=== PATIENT | male | born 1980 | race Hispanic/Latino ===

== ENCOUNTER → 2024-04-13 | Outpatient (CLI) | payer BC, SELFPAY ==
[2024-04-13 15:47] LABS: ALB/GLOB Ratio 1.1 RATIO (0.9-2.4); AST(SGOT) 14 U/L (15-37); Alanine Aminotransfer ALT/SGPT 25 U/L (16-61); Albumin, Serum 3.8 g/dL (3.2-5.0); Alkaline Phosphatase 59 U/L (45-117); Anion Gap 6 (5-15); BUN 18 mg/dL (7-18); BUN/Creat Ratio 18.8 RATIO (10-20); CRP < 2.90 mg/L (0.0-3.0); Chloride 109 mmol/L (98-107); Cholesterol 157 mg/dL (200); Creatinine, Serum 0.96 mg/dL (0.70-1.30); EST Glomerular Filtration Rate 91 mL/min (>60); Est Glom Filt Rate - Afr Amer 110 mL/min (>60); Globulin 3.5 g/dL (2.2-4.2); Glucose 116 mg/dL (74-106); High Density Lipoprotein 29 mg/dL; Magnesium 2.3 mg/dL (1.6-2.6); Potassium 4.4 mmol/L (3.5-5.1); Protein, Total 7.3 g/dL (6.4-8.2); Sodium Level 139 mmol/L (136-145); Triglycerides 146 mg/dL; Very Low Density Lipoprotein 29 mg/dL (5-40)
[2024-04-13 16:25] LABS: Erythrocyte Sedimentation Rate 3 mm/hr (0-20)
[2024-04-13 16:26] LABS: Absolute Neutrophil Count 4.7 X10^3/uL (2.0-7.7); Basophil# 0.05 X10^3/uL; Basophil% 0.6 % (0-1); Eosinophil# 0.23 X10^3/uL; Eosinophils% 2.9 % (0-5); Hematocrit 45.3 % (40-54); Hemoglobin 15.2 g/dL (13.0-16.5); Lymphocyte % 29.4 % (19-41); Mean Corp Hgb Conc 33.6 g/dL (32-36); Mean Corpuscular Hgb 31.9 pg (27.0-32.0); Mean Corpuscular Volume 95.2 fL (80-94); Mean Platelet Vol. 9.7 fl (6.2-12.0); Monocyte# 0.49 X10^3/uL; Monocyte% 6.3 % (0-10); NRBC Flagged by Analyzer 0 % (0-5); Neutrophil # 4.71 X10^3/uL (2.7-7.7); Neutrophil % 60.4 % (47-70); Platelet Count 281 K/mm3 (150-450); RBC Distribution Width SD 45.5 fl (35.1-43.9); Red Blood Count 4.76 M/mm3 (4.6-6.2); White Blood Count 7.8 K/mm3 (4.4-11.0)
[2024-04-13 16:40] LABS: Vitamin B12 432 pg/mL (211-911); Vitamin D,25 Hydroxy 25.2 ng/mL
[2024-04-15 12:08] LABS: ANTINUCLEAR ANTIBODIES DIRECT Negative (Negative)
[2024-04-15 17:07] LABS: CCP IgG Antibodies 3 units (0-19)
== END | disposition home or self-care (01) ==
LOC: BIMLAB 12:03
PROVIDERS: Visit Provider Physician Assistant
DX: Z00.00 Encounter for general adult medical examination without abnormal findings (principal); M25.50 Pain in unspecified joint; R63.4 Abnormal weight loss
CPT/HCPCS: 36415; 80053; 80061; 82306; 82607; 83735; 84443; 85025; 85652; 86038; 86140; 86200

== ENCOUNTER → 2024-06-22 | Outpatient (CLI) | payer BC, SELFPAY ==
[2024-06-22 14:37] LABS: CRP < 3.00 mg/L (0.0-3.0); Rheumatoid Factor < 10.0 IU/mL (<15)
== END | disposition home or self-care (01) ==
LOC: BIMLAB 10:24
PROVIDERS: PCP Internal Medicine; Referring Provider Internal Medicine; Visit Provider Internal Medicine
DX: M25.50 Pain in unspecified joint (principal)
CPT/HCPCS: 36415; 86140; 86431

== ENCOUNTER 2024-08-17 10:19 | Day surgery (SDC) | payer BC, SELFPAY ==
[2024-08-17] VITALS (8 sets, daily range): BP systolic 87–97; BP diastolic 56–64; PULSE 58–69; RESP 16–18; TEMP 36.6–37.1; O2SAT 93–99; BMI 28.5
[2024-08-17] MEDS: Lactated Ringers 1,000 ML 15 ML IV (10:48)
--- NOTE | 2024-08-17 10:57 | PRE.ANES_ITS ---
ASA Classification* ASA Classification ASA Classification: 2 (daily THC use) Assessment & Plan Anesthesia* Anesthesia Assessment Anesthesia Assessment: Discussed sedation and/or anesthesia options, risks, benefits, and alternatives with patient/parents/legal guardian/POA. Questions invited. The patient/parents/legal guardian/POA seems to understand and agrees to proceed with anesthesia plan. Reviewed the physical assessment, medical history, allergy history and patient home medications list prior to surgery/procedure/anesthetic and documented any changes. Performed airway and anesthesia risk assessments. Anesthesia Type Anesthesia Type: General History Source History Obtained from:: Patient and Chart Anesthesia Focused Assessment* Temperature: 97.9 F Pulse Rate: 69 Blood Pressure: 95/64 Respiratory Rate: 18 Pulse Ox: 99 Oxygen Delivery Method: Room Air Airway Assessment Mouth opens: >3 cm Mallampati Score: II Teeth Condition: Intact and Missing (many missing bottom left ) Neck Range of motion (ROM): Full ROM Focused Labs Anesthesia Preop lab: CBC WBC 7.8 K/mm3 (4.4-11.0) 04/13/24 12:03 04/13/24 RBC 4.76 M/mm3 (4.6-6.2) 04/13/24 12:03 04/13/24 Hgb 15.2 g/dL (13.0-16.5) 04/13/24 12:03 04/13/24 Hct 45.3 % (40-54) 04/13/24 12:03 04/13/24 Plt Count 281 K/mm3 (150-450) 04/13/24 12:03 04/13/24 CHEMISTRY Potassium 4.4 mmol/L (3.5-5.1) 04/13/24 12:03 04/13/24 Sodium 139 mmol/L (136-145) 04/13/24 12:03 04/13/24 Magnesium 2.3 mg/dL (1.6-2.6) 04/13/24 12:03 04/13/24 BUN 18 mg/dL (7-18) 04/13/24 12:03 04/13/24 Creatinine 0.96 mg/dL (0.70-1.30) 04/13/24 12:03 04/13/24 Glucose 116 mg/dL (74-106) H 04/13/24 12:03 04/13/24 TSH 1.200 uIU/mL (0.358-3.740) 04/13/24 12:03 03/17 12/08 COAG Pre-Assessment Diagnosis/Proposed Procedure Planned Operative Procedure(s): Colonoscopy,EGD Anesthesia History Anesthesia History - 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 When Was Last Pacemaker Check QUESTION #4 FULL TEXT: You/Your Family Experience fever (hyperthermia) with Anesthesia Last Oral Intake Last Oral intake: Last Oral Intake NPO since 07:15 08/17/24 10:43 Meds taken in AM with sips of No 08/17/24 10:43 water? Meds patient instructed to take am of surgery PONV PONV - senior mainframe developer: PONV - senior mainframe developer Female No 08/12/24 12:29 HX of Motion Sickness No 08/12/24 12:29 HX of N/V After Surgery No 08/12/24 12:29 Non-Smoker No 08/12/24 12:29 Duration of Surgery greater No 08/12/24 12:29 than 60 minutes Number of Risk Factors PONV Score Height & Weight Height & Weight: Anesthesia: Height & Weight Height 6 ft 2.02 in 08/17/24 10:43 Weight: 101 kg 08/17/24 10:43 Body Mass Index (BMI) 28.5 08/17/24 10:43 Respiratory Assessment Respiratory Assessment - senior mainframe developer: Respiratory Tract Infection Hx - senior mainframe developer Hx Respiratory Tract Infection No 08/12/24 12:29 STOP Sleep Apnea STOP Sleep Apnea - senior mainframe developer: STOP Sleep Apnea - senior mainframe developer Hx Hypertension No 08/12/24 12:29 Hx Sleep Apnea No 08/12/24 12:29 CPAP BIPAP Do you snore loudly (louder No 08/12/24 12:29 than talking or can be heard Do you often feel tired/ No 08/12/24 12:29 fatigued/ sleepy during daytime? Has anyone observed you stop No 08/12/24 12:29 breathing during sleep? STOP Results Negative 08/12/24 12:29 QUESTION #5 FULL TEXT : Do you snore loudly (louder than talking or can be heard through closed doors)? 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 Specify any problems Hx of Preganancy in last 3 N/A 08/12/24 12:29 Months Nurse Filling Out Transfusion JZOLLINGE 08/12/24 12:29 & Questions: Date: 08/12/24 08/12/24 12:29 Time: 12:30 08/12/24 12:29 Patient unable to answer at this time (ie. confused, unrespo /Reproduction History /Reproductive History - senior mainframe developer: /Reproductive Hx- senior mainframe developer Hx Now No 08/12/24 12:29 Gestational Age (in weeks): EDC: Hx Hx Para Hx Section SAB No 08/12/24 12:29 Active Medications Active Medications: Current Medications Generic Name Dose Route Start Last Admin Trade Name Freq PRN Reason Stop Dose Admin Lactated Ringer's 1,000 mls @ 15 mls/hr 08/17/24 10:30 08/17/24 10:48 IV 15 mls/hr .Q48H VIKASH Administration PFSH Medical History (Updated 08/12/24 @ 12:29 by Kate Medina) Alcohol use Marijuana use Arthritis Smoker Borderline type 2 diabetes mellitus Colon cancer screening Diverticulitis Back problem Home Medications ?Medication ?Instructions ?Recorded ?Last Taken ?Type meloxicam 15 mg tablet 15 mg PO QDAY PRN pain #90 t abs 06/22/24 Unknown Rx ocsgzyxoargw-sbtzihk-ebldr acid 1 tab PO QDAY 06/22/24 Unknown History 400 mcg-lutein 250 mcg chewable tablet (Centrum Silver) naproxen 500 mg tablet 500 mg PO BID PRN PRN pain 0 08/12/24 Unknown History Allergy/AdvReac Type Severity Reaction Status Date / Time No Known Allergies Allergy Verified 08/17/24 10:42 Family History Grandmother Cancer breast Mother Diabetes Hypertension Kidney disease Aunt Lung cancer Surgical History History of appendectomy Social History adopted: No household members: spouse housing: house number of children: 2 current occupational status: employed 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 Physical Exam Const alert, oriented x3 and average body habitus Resp normal respiratory effort, normal air movement and clear to auscultation bilate rally Cardio regular rate, regular rhythm, no murmurs and diaphoretic
--- NOTE | 2024-08-17 11:15 | EGD_PTH ---
PATIENT: MAURO MANRIQUEZ LOC: EN U#:[id number] AGE/SX: 44/M ROOM: RE08/17/[address]: Dr. Arnulfo Markham DO : 1980 BED: DIS: 08/17/2024 SPEC #: [id number] RECD: 08/17/24 12:45 STATUS: MERLINE REQ #: [id number] SANJANA: 08/17/24 11:[address]: Arnulfo Markham DEPT: SURGICAL PATHOLOGY RECD BY: Etienne Christie ENTERED: 08/17/24 13:16 SP TYPE: EGD BIOPSY OT DR: Dr. Julisa Littlejohn MD Tissues: A - Duodenum, NOS B - Gastric mucous membrane C - Ileum, NOS D - COLON BIOPSY E - COLON BIOPSY Procedures: Immunohistochemical Stains Surgery Specimen Level IV HEADER OPERATION: Colonoscopy with biopsy, EGD with biopsy PRE-OP DIAGNOSIS: Weight loss, colon cancer screening TISSUE SUBMITTED: A- Duodenum biopsy, B- Gastric ulcer biopsy, C- Terminal ileum biopsy, D- Right side colon biopsy, E- Left side colon biopsy MICROSCOPIC DIAGNOSIS A. Small intestine, duodenum, biopsies: * Slight villous irregularity with Chasity's gland hyperplasia and without active inflammation B. Stomach, gastric ulcer: * Oxyntic mucosa with areas of superficial erosion with an overlying fibrinopurulent exudate, consistent superficial ulceration * An immunohistochemical stain for Helicobacter pylori is negative C. Small intestine, terminal ileum: * Benign without active inflammation or architectural distortion D. Large intestine, right side: * Benign colonic mucosa without active inflammation E. Large intestine, left side: * Benign colonic mucosa without active inflammation MICROSCOPIC DESCRIPTION Slides are reviewed. All matched controls reacted appropriately. These tests were developed and their performance characteristics determined by [facility]. They may not have been cleared or approved by the U.S. Food and Drug Administration. The FDA has determined that such clearance or approval is not necessary. The above immunohistochemical/dualISH markers are ordered and reviewed by the Pathologist. GROSS DESCRIPTION A. Received in formalin in a container labeled with the patient's name, date of , and duodenum biopsy are multiple farfan-pink fragments of mucosal tissue measuring 0.8 x 0.6 x 0.3 cm in aggregate. Submitted in toto in A1. B. Received in formalin in a container labeled with the patient's name, date of , and gastric ulcer biopsy for H. pylori and path are multiple farfan-pink to farfan-arellano fragments of mucosal tissue measuring 0.7 x 0.6 x 0.2 cm in aggregate. Submitted in toto in B1. C. Received in formalin in a container labeled with the patient's name, date of , and terminal ileum biopsy are multiple farfan-pink fragments of mucosal tissue measuring 1.2 x 0.6 x 0.2 cm in aggregate. Submitted in toto in C1. D. Received in formalin in a container labeled with the patient's name, date of , and right side colon biopsy are multiple farfan-pink fragments of mucosal tissue measuring 1.0 x 0.5 x 0.2 cm in aggregate. Submitted in toto in D1. E. Received in formalin in a container labeled with the patient's name, date of , and left side colon biopsy are multiple farfan-pink fragments of mucosal tissue measuring 0.8 x 0.6 x 0.2 cm in aggregate. Submitted in toto in E1. [facility] 08-17-2024 CPT:58149u4,55077
--- NOTE | 2024-08-17 11:43 | PCM.HP.STD ---
HPI - General General Date of Admission: 08/17/24 Date of Service: 08/17/24 Chief Complaint: Weight loss and screening colonoscopy HPI Narrative FIDEL SUAREZ, is a 44 M who presents for an upper lower endoscopy. Pt here today for screening colonoscopy as he is due for his first one. He endorses some mild constipation over the past year with straining. he is also having unintentional weight loss over the past year with about a 50 lbs weight loss. He has a lack of appetite which causes him to eat less. He endorses smoking marijuana for his insomnia and appetite stimulation. He has some blood with wiping after bowel movements. It is bright red and streaks the toilet paper. He Tyson abd pain, diarrhea, melena, n/v, or heartburn. he denies family hx of colon cancer. [facility] Medical History Alcohol use Marijuana use Arthritis Smoker Borderline type 2 diabetes mellitus Colon cancer screening Diverticulitis Back problem Home Medications ?Medication ?Instructions ?Recorded ?Last Taken ?Type meloxicam 15 mg tablet 15 mg PO QDAY PRN pain #90 tabs 06/22/24 Unknown Rx pezzxxufqzox-clfzdfs-fjbwz acid 1 tab PO QDAY 06/22/24 Unknown History 400 mcg-lutein 250 mcg chewable tablet (Centrum Silver) naproxen 500 mg tablet 500 mg PO BID PRN PRN pain 08/12/24 Unknown History Allergy/AdvReac Type Severity Reaction Status Date / Time No Known Allergies Allergy Verified 08/17/24 10:42 Family History Grandmother Cancer breast Mother Diabetes Hypertension Kidney disease Aunt Lung cancer Surgical History History of appendectomy Social History adopted: No household members: spouse housing: house number of children: 2 current occupational status: employed 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 pets and animals: Yes (1) pets and animals: dog(s) sexually active: Yes Smoking Status: Light Smoker (<10/day) Tobacco: How many years used: 25 alcohol intake: current alcohol intake frequency: holidays/special occasions only substance use type: marijuana and other details: [facility] caffeine: Yes (4-6) Type: coffee what type of physical activity do you participate in: none frequency: does not exercise seatbelt use: always do you feel safe at home: Yes ROS Constitutional Constitutional: Denies fatigue, fever(s), poor appetite, weight gain or weight loss Gastrointestinal Gastrointestinal: Denies belching, bloating, change in bowel habits, change in stool character, chewing difficulty, coffee ground emesis, constipation, cramping, diarrhea, dyspepsia, dysphagia, early satiety, excessive flatus, fecal incontinence, heartburn, hematemesis, hematochezia, hemorrhoids, loose stools, melena, nausea, odynophagia, rectal bleeding, tenesmus, vomiting or weight changes Vital Signs Vital Signs Vital Signs: 08/17/24 10:43 08/17/24 10:43 08/17/24 10:59 Temperature 97.9 F 97.9 F Temperature Source Temporal Pulse Rate 69 69 Respiratory Rate 18 18 Respiratory Pattern Normal Blood Pressure 95/64 95/64 Blood Pressure Mean 74 Blood Pressure Source Monitor Blood Pressure Position Sitting Blood Pressure Location Right Arm Pulse Ox 99 99 Oxygen Delivery Method Room Air Room Air Weight Weight: 222 lb 10.67 oz Body Mass Index (BMI) 28.5 Physical Exam Const alert, oriented x3, no apparent distress and healthy appearing General Appearance: cooperative GI normal to inspection, nondistended, normoactive bowel sounds, soft to palpation, non-tender and non-distended Percussion: normal to percussion Rectal Exam: deferred Assessment & Plan Assessment/Plan (1) Weight loss: (2) Colon cancer screening: PLAN: Assessment and Plan Assessment and Plan (1) Colon cancer screening: Status: Acute Plan: Fidel is a 44 yo male pt here today for screening colonoscopy. Pt endorses mild constipation starting about one year ago as well as unintentional weight loss of 50 lbs over the past 3 years. He denies abd pain, n/v, diarrhea or blood in his stool. He has no family hx of colon cancer. He will undergo colonoscopy and EGD for screening and to evaluate etiology of his weight loss. -EGD -Colonoscopy -f/u after procedures (2) Weight loss: Status: Acute
--- NOTE | 2024-08-17 12:36 | OP.CCLET_ITS ---
08/17/2024 Julisa Littlejohn MD [address] [place] [address] [place] [address] Re : Upper GI endoscopy procedure for Fidel Hess Dear Dr. Littlejohn This procedure was performed on Thursday, August 17, 2024. My impressions and recommendations are as follows: Impressions : - Normal esophagus. - Non-bleeding gastric ulcer with no stigmata of bleeding. Biopsied. - Non-bleeding duodenal ulcers. Biopsied. Recommendations : - Discharge patient to home. - Resume previous diet. - Continue present medications. - Await pathology results. My findings are described in the full procedure note, which is enclosed. If I can be of further assistance, please feel free to contact me at . Sincerely, Arnulfo Markham, 08/17/2024 12:35:58 PM This report has been signed electronically.
--- NOTE | 2024-08-17 12:36 | OP.EGD_ITS ---
Patient Name: Fidel Hess Procedure Date: 08/17/2024 11:51 AM Date of : 1980 Age: 44 Procedure: Upper GI endoscopy Indications: Epigastric abdominal pain, Functional Dyspepsia, Weight loss Providers: Arnulfo Markham DO Referring MD: Julisa Littlejohn MD Medicines: Monitored Anesthesia Care Patient Profile: This is a 44 year old male. Refer to note in patient chart for documentation of history and physical. Patient has symptoms of chronic abdominal cramping, chronic epigastric abdominal pain, acute dyspepsia and chronic nausea. Complications: No immediate complications. Procedure: Pre-Anesthesia Assessment: - Prior to the procedure, a History and Physical was performed, and patient medications and allergies were reviewed. The patient is competent. The risks and benefits of the procedure and the sedation options and risks were discussed with the patient. All questions were answered and informed consent was obtained. Patient identification and proposed procedure were verified by the physician in the pre-procedure area. Mental Status Examination: alert and oriented. Airway Examination: normal oropharyngeal airway and neck mobility. Respiratory Examination: clear to auscultation. CV Examination: normal. Prophylactic Antibiotics: The patient does not require prophylactic antibiotics. Prior Anticoagulants: The patient has taken no anticoagulant or antiplatelet agents except for NSAID medication. ASA Grade Assessment: II - A patient with mild systemic disease. After reviewing the risks and benefits, the patient was deemed in satisfactory condition to undergo the procedure. The anesthesia plan was to use monitored anesthesia care (MAC). Immediately prior to administration of medications, the patient was re-assessed for adequacy to receive sedatives. The heart rate, respiratory rate, oxygen saturations, blood pressure, adequacy of pulmonary ventilation, and response to care were monitored throughout the procedure. The physical status of the patient was re-assessed after the procedure. After obtaining informed consent, the endoscope was passed under direct vision. Throughout the procedure, the patient's blood pressure, pulse, and oxygen saturations were monitored continuously. The colonoscope was introduced through the mouth, and advanced to the fourth part of the duodenum. Small bowel enteroscopy was deemed necessary. The upper GI endoscopy was accomplished without difficulty. The patient tolerated the procedure well. Scope In: 12:07:31 PM Scope Out: 12:11:51 PM Total Procedure Duration Time 0 hours 4 minutes 20 seconds Findings: The examined esophagus was normal. One non-bleeding linear gastric ulcer with no stigmata of bleeding was found in the gastric antrum. The lesion was 4 mm in largest dimension. Biopsies were taken with a cold forceps for histology. Verification of patient identification for the specimen was done. Estimated blood loss was minimal. Biopsies were taken with a cold forceps for Helicobacter pylori testing. Verification of patient identification for the specimen was done. Estimated blood loss was minimal. Many non-bleeding duodenal ulcers were found in the entire duodenum. Biopsies were taken with a cold forceps for histology. Verification of patient identification for the specimen was done. Estimated blood loss was minimal. Impression: - Normal esophagus. - Non-bleeding gastric ulcer with no stigmata of bleeding. Biopsied. - Non-bleeding duodenal ulcers. Biopsied. Recommendation: - Discharge patient to home. - Resume previous diet. - Continue present medications. - Await pathology results. Procedure Code(s): --- Professional --- 88467, Small intestinal endoscopy, enteroscopy beyond second portion of duodenum, not including ileum; with biopsy, single or multiple CPT copyright 2021 [employer]. All rights reserved. The codes documented in this report are preliminary and upon marshmallow machine operator review may be revised to meet current compliance requirements. Arnulfo Markham DO 08/17/2024 12:35:58 PM This report has been signed electronically. Number of Addenda: 0 Note Initiated On: 08/17/2024 11:51 AM
--- NOTE | 2024-08-17 12:36 | PCM.POST.ANE ---
Anesthesia: Postop Eval I Current Vital Signs Temperature: 98.7 F Pulse Rate: 64 Blood Pressure: 97/59 Respiratory Rate: 16 Pulse Ox: 95 Oxygen Delivery Method: Room Air Assessment Airway patent: Yes Spontaneous unlabored respirations: Yes Mental status: Awake and Calm nausea: No Vomiting: No Anesthesia Complication: No Fluid Hydration Crystalloid volume administer (ml): 800 Total IV fluid infused: 800 Progress Note Anesthesia document: Postop Eval 1 completed: Yes
--- NOTE | 2024-08-17 12:42 | OP.CCLET_ITS ---
08/17/2024 Julisa Littlejohn MD [address] [place] [address] [place] [address] Re : Colonoscopy procedure for Fidel Hess Dear Dr. Littlejohn This procedure was performed on Saturday, August 17, 2024. My impressions and recommendations are as follows: Impressions : - Diverticulosis in the entire examined colon. - Congested mucosa in the sigmoid colon, in the descending colon, at the hepatic flexure, in the ascending colon and in the cecum. Biopsied. - Stool in the rectum. - Mild inflammation was found in the ileum secondary to ileitis. Biopsied. Recommendations : - Discharge patient to home. - Resume previous diet. - Continue present medications. - Await pathology results. - Repeat colonoscopy for surveillance. My findings are described in the full procedure note, which is enclosed. If I can be of further assistance, please feel free to contact me at . Sincerely, Arnulfo Markham DO 08/17/2024 12:41:51 PM This report has been signed electronically.
--- NOTE | 2024-08-17 12:42 | OP.COLON_ITS ---
Patient Name: Fidel Hess Procedure Date: 08/17/2024 12:11 PM Date of : 1980 Age: 44 Procedure: Colonoscopy Indications: Screening for colorectal malignant neoplasm Providers: Arnulfo Markham DO Referring MD: Julisa Littlejohn MD Medicines: Monitored Anesthesia Care Patient Profile: This is a 44 year old male. Refer to note in patient chart for documentation of history and physical. Patient has symptoms of chronic abdominal cramping, chronic epigastric abdominal pain, acute dyspepsia and chronic nausea. Last Colonoscopy: none. The patient's first colonoscopy is today. Complications: No immediate complications. Procedure: Pre-Anesthesia Assessment: - Prior to the procedure, a History and Physical was performed, and patient medications and allergies were reviewed. The patient is competent. The risks and benefits of the procedure and the sedation options and risks were discussed with the patient. All questions were answered and informed consent was obtained. Patient identification and proposed procedure were verified by the physician in the pre-procedure area. Mental Status Examination: alert and oriented. Airway Examination: normal oropharyngeal airway and neck mobility. Respiratory Examination: clear to auscultation. CV Examination: normal. Prophylactic Antibiotics: The patient does not require prophylactic antibiotics. Prior Anticoagulants: The patient has taken no anticoagulant or antiplatelet agents except for NSAID medication. ASA Grade Assessment: II - A patient with mild systemic disease. After reviewing the risks and benefits, the patient was deemed in satisfactory condition to undergo the procedure. The anesthesia plan was to use monitored anesthesia care (MAC). Immediately prior to administration of medications, the patient was re-assessed for adequacy to receive sedatives. The heart rate, respiratory rate, oxygen saturations, blood pressure, adequacy of pulmonary ventilation, and response to care were monitored throughout the procedure. The physical status of the patient was re-assessed after the procedure. After I obtained informed consent, the scope was passed under direct vision. Throughout the procedure, the patient's blood pressure, pulse, and oxygen saturations were monitored continuously. The colonoscope was introduced through the anus and advanced to the terminal ileum. The colonoscopy was performed without difficulty. The patient tolerated the procedure well. The quality of the bowel preparation was adequate. Anatomical landmarks were photographed. Scope In: 12:13:43 PM Scope Withdrawal Time 0 hours 12 minutes 9 seconds Scope Out: 12:27:48 PM Total Procedure Duration Time 0 hours 14 minutes 5 seconds Findings: The perianal and digital rectal examinations were normal. Multiple small-mouthed diverticula were found in the entire colon. An area of mildly congested mucosa was found in the sigmoid colon, in the descending colon, at the hepatic flexure, in the ascending colon and in the cecum. Biopsies were taken with a cold forceps for histology. Verification of patient identification for the specimen was done. Estimated blood loss was minimal. A moderate amount of stool was found in the rectum, precluding visualization. Patchy mild inflammation characterized by congestion (edema), erythema and friability was found in the distal ileum and in the terminal ileum. Biopsies were taken with a cold forceps for histology. Verification of patient identification for the specimen was done. Estimated blood loss was minimal. Impression: - Diverticulosis in the entire examined colon. - Congested mucosa in the sigmoid colon, in the descending colon, at the hepatic flexure, in the ascending colon and in the cecum. Biopsied. - Stool in the rectum. - Mild inflammation was found in the ileum secondary to ileitis. Biopsied. Recommendation: - Discharge patient to home. - Resume previous diet. - Continue present medications. - Await pathology results. - Repeat colonoscopy for surveillance. Procedure Code(s): --- Professional --- 31025, Colonoscopy, flexible; with biopsy, single or multiple CPT copyright 2021 [employer]. All rights reserved. The codes documented in this report are preliminary and upon child psychiatrist review may be revised to meet current compliance requirements. Arnulfo Markham DO 08/17/2024 12:41:51 PM This report has been signed electronically. Number of Addenda: 0 Note Initiated On: 08/17/2024 12:11 PM
--- NOTE | 2024-08-17 15:40 | PCM.POSTANE2 ---
Anesthesia Postop Eval I Sum Postop Eval Completion status Anesthesia document: Postop Eval 1 completed: Yes Anesthesia Postop Eval I Summary Anesthesia Postop Eval I Summary: Anesthesia Postop Eval I: Assessment Summary Airway patent Yes 08/17/24 12:36 [email or web address] Spontaneous unlabored Yes 08/17/24 12:36 [email or web address] respirations Mental status Awake,Calm 08/17/24 12:36 [email or web address] nausea No 08/17/24 12:36 [email or web address] Vomiting No 08/17/24 12:36 [email or web address] Anesthesia Postop Eval I: Fluid Summary Crystalloid volume administer 800 08/17/24 12:36 [email or web address] (ml) Colloids volume administered ( ml) Blood Product volume administered (ml) Total IV fluid infused 800 08/17/24 12:36 [email or web address] Anesthesia Postop Eval I: Summary Notes Anesthesia Complication No 08/17/24 12:36 [email or web address] Anesthesia Complication Comment: Post-operative progress note Anesthesia: Postop Eval II Evaluation Mental status: Awake Pain Level: 0 nausea: No Vomiting: No Complications Anesthesia Complication: No
== END 2024-08-17 13:25 | disposition home or self-care (01) ==
LOC: EN 10:22 → AC 10:25
PROVIDERS: PCP Internal Medicine; Referring Provider Internal Medicine; Visit Provider Internal Medicine Gastroenterology
PROC: 0DJD8ZZ Inspection of Lower Intestinal Tract, Via Natural or Artificial Opening Endoscopic (ICD-10-PCS; CPT 45378; principal; 2024-08-17 11:10)
DX: Z12.11 Encounter for screening for malignant neoplasm of colon (principal); K57.30 Diverticulosis of large intestine without perforation or abscess without bleeding; K63.89 Other specified diseases of intestine; F17.200 Nicotine dependence, unspecified, uncomplicated; K25.9 Gastric ulcer, unspecified as acute or chronic, without hemorrhage or perforation; Z79.1 Long term (current) use of non-steroidal anti-inflammatories (NSAID); M19.90 Unspecified osteoarthritis, unspecified site; Z90.49 Acquired absence of other specified parts of digestive tract; R63.4 Abnormal weight loss; Z68.28 Body mass index [BMI] 28.0-28.9, adult; K26.9 Duodenal ulcer, unspecified as acute or chronic, without hemorrhage or perforation; K31.89 Other diseases of stomach and duodenum
CPT/HCPCS: 45380; 43239; 88305; 88342; J2405

== ENCOUNTER → 2024-10-26 | Outpatient (CLI) | payer BC, SELFPAY ==
[2024-10-26 10:18] LABS: Hematocrit 44.5 % (40-54); Hemoglobin 15.1 g/dL (13.0-16.5); Immature Granulocytes Count 0.040 X10^3/uL (0.0-0.0); Mean Corp Hgb Conc 33.9 g/dL (32-36); Mean Corpuscular Volume 96.1 fL (80-94); Mean Platelet Vol. 9.1 fl (6.2-12.0); NRBC Flagged by Analyzer 0 % (0-5); Platelet Count 266 K/mm3 (150-450); RBC Distribution Width CV 13.1 % (11.6-14.6); RBC Distribution Width SD 46.5 fl (35.1-43.9); Red Blood Count 4.63 M/mm3 (4.6-6.2); White Blood Count 8.6 K/mm3 (4.4-11.0)
== END | disposition home or self-care (01) ==
LOC: LAB 09:38
PROVIDERS: PCP Internal Medicine; Referring Provider Student in an Organized Health Care Education/Training Program; Visit Provider Student in an Organized Health Care Education/Training Program
DX: K25.9 Gastric ulcer, unspecified as acute or chronic, without hemorrhage or perforation (principal)
CPT/HCPCS: 36415; 85025